=== PATIENT | male | born 1980 | race Caucasian/White ===

== ENCOUNTER 2017-11-11 08:33 | Emergency (ER) | payer OTHER ==
[2017-11-11] MEDS ORDERED: Diphtheria,Pertussis(Acell),Tetanus Vaccine 0.5 ML Syringe IM ONE (08:50)
--- NOTE | 2017-11-11 08:54 | EDM.PDOC ---
ED HPI GENERAL MEDICAL PROBLEM - General Chief Complaint: Lower Extremity Injury/Pain Stated Complaint: STEPPED ON AN OIL NAIL(RT FOOT) Time Seen by Provider: 11/11/17 08:44 - History of Present Illness INITIAL COMMENTS - FREE TEXT/NARRATIVE: HISTORY AND PHYSICAL: History of present illness: Patient 37-year-old male presents 24-hour status post puncture wound that occurred through his work shoes. This was his right heel. Review of systems: As per history of present illness and below otherwise all systems reviewed and negative. Past medical history: As per history of present illness and as reviewed below otherwise noncontributory. Surgical history: As per history of present illness and as reviewed below otherwise noncontributory. Social history: No reported history of drug or alcohol abuse. Family history: As per history of present illness and as reviewed below otherwise noncontributory. Physical exam: HEENT: Atraumatic, normocephalic, pupils reactive, negative for conjunctival pallor or scleral icterus, mucous membranes moist, throat clear, neck supple, nontender, trachea midline. Lungs: Clear to auscultation, breath sounds equal bilaterally, chest nontender. Heart: S1S2, regular, negative for clicks, rubs, or JVD. Abdomen: Soft, nondistended, nontender. Negative for masses or hepatosplenomegaly. Negative for costovertebral tenderness. Pelvis: Stable nontender. Genitourinary: Deferred. Rectal: Deferred. Extremities: Right heel has a small puncture wound noted with small erythema no evidence of retained foreign body or other significant finding no induration no fluctuance neurovascular exams unremarkable Neuro: Awake, alert, oriented. Cranial nerves II through XII unremarkable. Cerebellum unremarkable. Motor and sensory unremarkable throughout. Exam nonfocal. Diagnostics: Deferred Therapeutics: Tetanus updated Impression: #1 puncture wound right foot Definitive disposition and diagnosis as appropriate pending reevaluation and review of above. Right Feet Pain Score (Numeric/FACES): 1 - Related Data Allergies Allergy/AdvReac Type Severity Reaction Status Date / Time No Known Allergies Allergy Verified 11/11/17 08:49 Home Meds: Home Meds . [No Known Home Meds] 11/11/17 [History] Past Medical History HEENT History: Reports: None Cardiovascular History: Reports: Angina (Chest pain is costochondritis. He was evaluated and the ekg and stress test were normal. He is able to walk up 2 flights of stairs without d.o.e.) Respiratory History: Reports: Pneumonia, Recurrent Other Respiratory History: states hx of pneumonia x5. no recent uris or pneumonia in the past month Gastrointestinal History: Reports: None Genitourinary History: Reports: Renal Calculus Other Genitourinary History: states previous kidney stones x3, Musculoskeletal History: Reports: None Neurological History: Reports: None Endocrine/Metabolic History: Reports: Obesity/BMI 30+ Hematologic History: Reports: None Dermatologic History: Reports: None - Past Surgical History HEENT Surgical History: Reports: Other (See Below) Musculoskeletal Surgical History: Reports: Arthroscopic Knee - History Comment History Comment: etoh "socially" Social & Family History - Tobacco Use Smoking Status *Q: Never Smoker Years of Tobacco use: 15 Second Hand Smoke Exposure: No - Alcohol Use Days Per Week of Alcohol Use: 0 - Recreational Drug Use Recreational Drug Use: No Drug Use in Last 12 Months: No Review of Systems - Review of Systems Review Of Systems: ROS reveals no pertinent complaints other than HPI. ED EXAM, GENERAL - Physical Exam Exam: See Below (See dictation) Course - Vital Signs Text/Narrative:: Discussed with patient high risk for infection and need for close follow-up he' ll be given podiatry referral Keflex and Cipro prescribed tetanus was updated in the emergency department Last Recorded V/S: Last Vital Signs Temp 36.3 C 11/11/17 08:45 Pulse 93 11/11/17 08:45 Resp 20 11/11/17 08:45 BP 121/80 11/11/17 08:45 Pulse Ox 98 11/11/17 08:45 - Orders/Labs/Meds Orders: Active Orders 24 hr Category Date Time Status Vaccines to be Administered [RC] PER UNIT ROUTINE Care 11/11/17 08:51 Ordered Diphth,Pertuss(Acell),Tet Vac [Adacel] Med 11/11/17 08:50 Once 0.5 ml IM .ONCE ONE Departure - Departure Time of Disposition: 08:53 Disposition: Home, Self-Care 01 Condition: Good Clinical Impression: Puncture wound - Discharge Information Referrals: PCP,None [Primary Care Provider] - Additional Instructions: The following information is given to patients seen in the emergency department who are being discharged to home. This information is to outline your options for follow-up care. We provide all patients seen in our emergency department with a follow-up referral. The need for follow-up, as well as the timing and circumstances, are variable depending upon the specifics of your emergency department visit. If you don't have a primary care physician on staff, we will provide you with a referral. We always advise you to contact your personal physician following an emergency department visit to inform them of the circumstance of the visit and for follow-up with them and/or the need for any referrals to a consulting specialist. The emergency department will also refer you to a specialist when appropriate. This referral assures that you have the opportunity for followup care with a specialist. All of these measure are taken in an effort to provide you with optimal care, which includes your followup. Under all circumstances we always encourage you to contact your private physician who remains a resource for coordinating your care. When calling for followup care, please make the office aware that this follow-up is from your recent emergency room visit. If for any reason you are refused follow-up, please contact the [facility] emergency department at and asked to speak to the emergency department charge nurse. [facility] - Podiatry [address] [place] [address] Fax: [phone] Cipro Keflex as prescribed follow-up podiatry return as needed as discussed - My Orders Last 24 Hours: My Active Orders 11/11/17 08:50 Diphth,Pertuss(Acell),Tet Vac [Adacel] 0.5 ml IM .ONCE ONE 11/11/17 08:51 Vaccines to be Administered [RC] PER UNIT ROUTINE - Assessment/Plan Last 24 Hours: My Active Orders 11/11/17 08:50 Diphth,Pertuss(Acell),Tet Vac [Adacel] 0.5 ml IM .ONCE ONE 11/11/17 08:51 Vaccines to be Administered [RC] PER UNIT ROUTINE
[2017-11-11 09:21] VITALS: BP 136/83
== END 2017-11-11 09:17 | disposition home or self-care (01) ==
LOC: MW.ED 08:33
DX: S91.331A Puncture wound without foreign body, right foot, initial encounter (principal); Z23 Encounter for immunization; W45.0XXA Nail entering through skin, initial encounter
CPT/HCPCS: 90471; 90715; 99283-25

== ENCOUNTER 2021-04-26 08:59 | Day surgery (SDC) | payer BC ==
[~2021-04-26 08:59] MED LIST: Lactated Ringers 1,000 ML IV SCH
--- NOTE | 2021-04-26 09:53 | PCM.PREANE ---
Preanesthetic Assessment - Procedure Proposed Procedure: Colonoscopy - Anesthesia/Transfusion/Family Hx Anesthesia History: Prior Anesthesia Without Reaction Family History of Anesthesia Reaction: No Transfusion History: No Prior Transfusion(s) - Review of Systems General: No Symptoms Pulmonary: No Symptoms Cardiovascular: No Symptoms Gastrointestinal: No Symptoms Neurological: No Symptoms Other: Reports: None (h/o Kidney stones) - Physical Assessment NPO Status Date: 04/24/21 NPO Status Time: 19:00 (Solids, >8 Hr Liq) Vital Signs: Last Vital Signs Temp 97.9 F 04/26/21 09:16 Pulse 73 04/26/21 09:16 Resp 16 04/26/21 09:16 BP 136/82 04/26/21 09:16 Pulse Ox 97 04/26/21 09:16 Height: 5 ft 8 in Weight: 106.141 kg (Obesity) ASA Class: 2 Mental Status: Alert & Oriented x3 Airway Class: Mallampati = 3 Dentition: Reports: Normal Dentition Thyro-Mental Finger Breadths: 3 Mouth Opening Finger Breadths: 3 ROM/Head Extension: Full Lungs: Clear to Auscultation, Normal Respiratory Effort Cardiovascular: Regular Rate, Regular Rhythm - Allergies Allergies/Adverse Reactions: Allergies Allergy/AdvReac Type Severity Reaction Status Date / Time No Known Allergies Allergy Verified 04/22/21 13:22 - Acknowledgements Anesthesia Type Planned: General Anesthesia Pt an Appropriate Candidate for the Planned Anesthesia: Yes Alternatives and Risks of Anesthesia Discussed w Pt/Guardian: Yes Pt/Guardian Understands and Agrees with Anesthesia Plan: Yes PreAnesthesia Questionnaire HEENT History: Reports: None Cardiovascular History: Reports: None Respiratory History: Reports: Pneumonia, Recurrent Other Respiratory History: states hx of pneumonia x5. Gastrointestinal History: Reports: Diverticulosis Genitourinary History: Reports: Renal Calculus Musculoskeletal History: Reports: None Neurological History: Reports: None Psychiatric History: Reports: None Endocrine/Metabolic History: Reports: Obesity/BMI 30+ Hematologic History: Reports: None Immunologic History: Reports: None Oncologic (Cancer) History: Reports: None Dermatologic History: Reports: None - Infectious Disease History Infectious Disease History: Reports: Chicken Pox - Past Surgical History Head Surgeries/Procedures: Reports: None HEENT Surgical History: Reports: None Cardiovascular Surgical History: Reports: None Respiratory Surgical History: Reports: None GI Surgical History: Reports: Colonoscopy, EGD, Hernia, Inguinal Other GI Surgeries/Procedures: hx colonoscopy with excision of anal fissure, hx heber inguinal hernia repair Male Surgical History: Reports: Lithotripsy (ESWL), Vasectomy Endocrine Surgical History: Reports: None Neurological Surgical History: Reports: None Musculoskeletal Surgical History: Reports: Arthroscopic Knee Oncologic Surgical History: Reports: None Dermatological Surgical History: Reports: None - History Comment History Comment: etoh "socially" - SUBSTANCE USE Tobacco Use Status *Q: Never Tobacco User Tobacco Use Within Last Twelve Months: No Recreational Drug Use History: No - HOME MEDS Home Medications: Home Meds . [No Known Home Meds] 06/28/18 [History] - CURRENT (IN HOUSE) MEDS Current Meds: Current Medications Lactated Ringer's (Ringers, Lactated) 1,000 mls @ 125 mls/hr IV ASDIRECTED [facility] Last Admin: 04/26/21 09:21 Dose: 125 mls/hr Documented by:
[2021-04-26] MEDS ORDERED: Propofol 200 MG/20 ML SDV ONE (10:16)
[2021-04-26] MEDS ORDERED: fentaNYL 100 MCG/2 ML SDV ONE (10:17)
[2021-04-26] MEDS ORDERED: Lactated Ringers 1,000 ML IV SCH (11:00)
--- NOTE | 2021-04-26 11:01 | PCM.OPNOTE ---
- General Post-Op/Procedure Note Date of Surgery/Procedure: 04/26/21 Operative Procedure(s): Colonoscopy Pre Op Diagnosis: Change in bowel habits. Intermittent rectal bleeding. Decreased stool caliber. Post-Op Diagnosis: No evidence of neoplasia. Anesthesia Technique: MAC (ASA II) Primary Surgeon: Dino Guy Nuclear Supervising Operator: Jethro Coombs Condition: Good Free Text/Narrative:: DICTATION 260353 CPT CODE 19405
--- NOTE | 2021-04-26 11:08 | PCM.POSTAN ---
POST ANESTHESIA ASSESSMENT - MENTAL STATUS Mental Status: Alert, Oriented - VITAL SIGNS Vital Signs: Last Vital Signs Temp 97.9 F 04/26/21 09:16 Pulse 73 04/26/21 09:16 Resp 16 04/26/21 09:16 BP 136/82 04/26/21 09:16 Pulse Ox 97 04/26/21 09:16 - RESPIRATORY Respiratory Status: Respiratory Rate WNL, Airway Patent, O2 Saturation Stable - CARDIOVASCULAR CV Status: Pulse Rate WNL, Blood Pressure Stable - GASTROINTESTINAL GI Status: No Symptoms - PAIN Pain Score: 0 - POST OP HYDRATION Hydration Status: Adequate & Stable
--- NOTE | 2021-04-26 11:09 | PCM48HPAN ---
Post Anesthesia Note - EVALUATION WITHIN 48HRS OF ANESTHETIC Vital Signs in Normal Range: Yes Patient Participated in Evaluation: Yes Respiratory Function Stable: Yes Airway Patent: Yes Cardiovascular Function Stable: Yes Hydration Status Stable: Yes Pain Control Satisfactory: Yes Nausea and Vomiting Control Satisfactory: Yes Mental Status Recovered: Yes Vital Signs: Last Vital Signs Temp 97.9 F 04/26/21 09:16 Pulse 73 04/26/21 09:16 Resp 16 04/26/21 09:16 BP 136/82 04/26/21 09:16 Pulse Ox 97 04/26/21 09:16 - COMMENTS/OBSERVATIONS Free Text/Narrative:: Pt doing well post-op. VSS. No apparent anesthetic complications. Dr. Andres Munroe
[2021-04-26 11:26] VITALS: BP 153/80; PULSE 58
--- NOTE | 2021-04-26 15:33 | OR ---
SURGEON: Dino Guy M.D. DATE OF PROCEDURE: 04/26/2021 OPERATION PERFORMED: Colonoscopy. PRIMARY SURGEON: Dino Guy M.D. ANESTHESIA: MAC. ASA CLASSIFICATION: II. HOUSE MOTHER: Cpas: ELIAS Townsend student. PREOPERATIVE DIAGNOSES: 1. Change in bowel habits. 2. Intermittent rectal bleeding. 3. Decreased stool caliber. POSTOPERATIVE DIAGNOSIS: No evidence of neoplasia. DESCRIPTION OF PROCEDURE: The patient was taken to the endoscopy room and positioned on the endoscopy table in a left lateral decubitus position. Time-out was called for appropriate identification of the patient and procedure. Monitored anesthesia care was provided. The colonoscope was inserted into the rectum and advanced with minimal difficulty to the cecum. The cecum was identified by internal landmarks and external pressure. The colonoscope was retroflexed in the cecum to visualize the ascending colon from below and then straightened and slowly withdrawn. The cecum, ascending colon, hepatic flexure, transverse colon, splenic flexure, descending colon, sigmoid colon, and rectum were very well visualized. No tumors, polyps, diverticula, or angiodysplastic changes were noted anywhere in the lower gastrointestinal tract. Once the colonoscope was withdrawn to the rectum, it was retroflexed to visualize the anal orifice from above. Again, no tumors or polyps were seen. There were no acute hemorrhoidal changes. There was no evidence of extrinsic compression into the rectum or any other filling defect. The colonoscope was then straightened, the rectum aspirated, and the colonoscope removed. The patient tolerated the procedure well and was taken to recovery room in satisfactory condition. CASSIDY / BERTRAND /[id number]
== END 2021-04-26 11:39 | disposition home or self-care (01) ==
LOC: MW.SDS 08:59
PROVIDERS: ATTEND Surgery
DX: R19.4 Change in bowel habit (principal); K62.5 Hemorrhage of anus and rectum; E66.9 Obesity, unspecified; R19.8 Other specified symptoms and signs involving the digestive system and abdomen; K60.2 Anal fissure, unspecified; F17.220 Nicotine dependence, chewing tobacco, uncomplicated; Z83.71 Family history of colonic polyps; Z98.890 Other specified postprocedural states
CPT/HCPCS: 45378; J2704; J3010; J7120